=== PATIENT | male | born 1955 | race Caucasian/White ===

== ENCOUNTER 2017-07-15 16:35 | Emergency (ER) | payer SELFPAY ==
[2017-07-15 16:41] VITALS: BP 139/77
--- NOTE | 2017-07-15 17:14 | ER Document Report ---
ED Medical Screen (RME) - General Chief Complaint: Sore Throat Stated Complaint: THROAT PAIN,COUGH Time Seen by Provider: 07/15/17 17:12 Notes: Patient was diagnosed last year with "throat cancer". He he was then started on radiation therapy. No surgery or chemo was given. Patient states that he did not complete radiation treatments because his insurance was canceled. He states he has not been seen by any doctor since September 2016. He was being followed by Dr. Pizarro. Patient states he comes in now because he feels like his voice is becoming more hoarse, his throat is more painful, and he is coughing more to the point where he cannot breathe. TRAVEL OUTSIDE OF THE [place] IN LAST 30 DAYS: No - Related Data Allergies/Adverse Reactions: No Known Allergies Allergy (Unverified 07/15/17 16:41) Past Medical History - Social History Chew tobacco use (# tins/day): No Frequency of alcohol use: None Drug Abuse: None Renal/ Medical History: Denies: Hx Peritoneal Dialysis Physical Exam - Vital signs Vitals: Temp Pulse Resp BP Pulse Ox 98.5 F 99 18 139/77 H 96 07/15/17 16:39 07/15/17 16:39 07/15/17 16:39 07/15/17 16:39 07/15/17 16:39 Course - Vital Signs Vital signs: Temp Pulse Resp BP Pulse Ox 98.5 F 99 18 139/77 H 96 07/15/17 16:39 07/15/17 16:39 07/15/17 16:39 07/15/17 16:39 07/15/17 16:39
--- NOTE | 2017-07-15 17:35 | RADIOLOGY REPORT (SQ) ---
EXAM DESCRIPTION: CHEST PA/LAT COMPLETED DATE/TIME: 07/15/2017 5:23 pm REASON FOR STUDY: cough COMPARISON: None. EXAM PARAMETERS: NUMBER OF VIEWS: two views TECHNIQUE: Digital Frontal and Lateral radiographic views of the chest acquired. RADIATION DOSE: NA LIMITATIONS: none FINDINGS: LUNGS AND PLEURA: No opacities, masses or pneumothorax. No pleural effusion. MEDIASTINUM AND HILAR STRUCTURES: No masses or contour abnormalities. HEART AND VASCULAR STRUCTURES: Heart normal size. No evidence for failure. BONES: No acute findings. HARDWARE: None in the chest. OTHER: No other significant finding. IMPRESSION: NO SIGNIFICANT RADIOGRAPHIC FINDING IN THE CHEST. TECHNICAL DOCUMENTATION: JOB ID: [id number] [employer]- All Rights Reserved
[2017-07-15 18:34] LABS: HEMATOCRIT 50.6 % (37.9-51.0); HEMOGLOBIN 17.8 g/dL (13.5-17.0); HGB HCT DIFFERENCE 2.8; MEAN CORPUSCULAR HEMOGLOBIN 32.4 pg (27.0-33.4); MEAN CORPUSCULAR HGB CONC 35.3 g/dL (32.0-36.0); MEAN CORPUSCULAR VOLUME 92 fl (80-97); RED BLOOD COUNT 5.51 10^6/uL (4.35-5.55); RED CELL DISTRIBUTION WIDTH 13.5 % (11.5-14.0); WHITE BLOOD COUNT 7.7 10^3/uL (4.0-10.5)
--- NOTE | 2017-07-15 18:38 | ER Document Report ---
ED ENT - General Chief Complaint: Sore Throat Stated Complaint: THROAT PAIN,COUGH Time Seen by Provider: 07/15/17 17:12 Notes: The patient is a 62-year-old male, past medical history throat cancer (was receiving radiation [address] Sosa, but no further treatment due to loss of insurance), presents with several weeks of increasing painful swallowing, dry cough and hoarse voice. He does not have insurance, but spoke to a financial counselor today in the ER ro help obtain insurance. He denies stridor, shortness of breath, fevers,nausea, vomiting, chest pain or neck stiffness. TRAVEL OUTSIDE OF THE [place] IN LAST 30 DAYS: No - Related Data Allergies/Adverse Reactions: No Known Allergies Allergy (Unverified 07/15/17 16:41) Past Medical History - General Information source: Patient - Social History Smoking Status: Former Smoker Chew tobacco use (# tins/day): No Frequency of alcohol use: None Drug Abuse: None Family History: Reviewed & Not Pertinent Patient has suicidal ideation: No Patient has homicidal ideation: No Renal/ Medical History: Denies: Hx Peritoneal Dialysis Review of Systems - Review of Systems Notes: REVIEW OF SYSTEMS: CONSTITUTIONAL: -fevers, -chills EENT: -eye pain, -difficulty swallowing, -nasal congestion, +sore throat CARDIOVASCULAR:-chest pain, -syncope. RESPIRATORY: +cough, -SOB GASTROINTESTINAL: -abdominal pain, - nausea, -vomiting, -diarrhea GENITOURINARY: -dysuria, -hematuria MUSCULOSKELETAL: -back pain, -neck pain SKIN: -rash or skin lesions. HEMATOLOGIC: -easy bruising or bleeding. LYMPHATIC: -swollen, enlarged glands. NEUROLOGICAL: -altered mental status or loss of consciousness, -headache, - neurologic symptoms PSYCHIATRIC: -anxiety, -depression. ALL OTHER SYSTEMS REVIEWED AND NEGATIVE. Physical Exam - Vital signs Vitals: Temp Pulse Resp BP Pulse Ox 98.5 F 99 18 139/77 H 96 07/15/17 16:39 07/15/17 16:39 07/15/17 16:39 07/15/17 16:39 07/15/17 16:39 - Notes Notes: PHYSICAL EXAMINATION: GENERAL: Well-appearing, well-nourished and in no acute distress. HEAD: Atraumatic, normocephalic. EYES: Pupils equal round and reactive to light, extraocular movements intact, sclera anicteric, conjunctiva are normal. ENT: nares patent, oropharynx clear without exudates. Moist mucous membranes. Hoarse voice. NECK: Normal range of motion, supple without lymphadenopathy LUNGS: Breath sounds clear to auscultation bilaterally and equal. No wheezes rales or rhonchi. HEART: Regular rate and rhythm without murmurs ABDOMEN: Soft, nontender, normoactive bowel sounds. No guarding, no rebound. No masses appreciated. EXTREMITIES: Normal range of motion, no pitting or edema. No cyanosis. NEUROLOGICAL: Cranial nerves grossly intact. Normal speech, normal gait. Normal sensory and motor exams. PSYCH: Normal mood, normal affect. SKIN: Warm, Dry, normal turgor, no rashes or lesions noted. Course - Re-evaluation Re-evalutation: 07/15/17 19:[address] Hussein (ENT construction contractor). He recommends having patient call his radiation oncologist, Dr. Sosa, tomorrow, since he is already a prior patient of his. He will consult if Dr. Sosa request his help. Patient is in no respiratory distress and he is protecting his airway. He has no stridor and his lungs are clear. Blood work and chest x-ray ordered from triage are unremarkable. Will provide pain control for patient and have him follow-up with the radiation oncologist tomorrow. Given strict return precautions and he understands. - Vital Signs Vital signs: Temp Pulse Resp BP Pulse Ox 98.5 F 99 18 139/77 H 96 07/15/17 16:39 07/15/17 16:39 07/15/17 16:39 07/15/17 16:39 07/15/17 16:39 - Laboratory Result Diagrams: 07/15/17 18:10 07/15/17 18:10 Laboratory results interpreted by me: 07/15/17 18:10 Hgb 17.8 H Lymphocytes % (Manual) 9 L - Diagnostic Test Radiology reviewed: Image reviewed, Reports reviewed Radiology results interpreted by me: CXR: NAD Discharge - Discharge Clinical Impression: Throat pain Condition: Stable Disposition: HOME, SELF-CARE Additional Instructions: Call your radiation oncologist tomorrow for a follow-up appointment. The financial counselor is helping you to obtain insurance to help with treatment. Return to the ER if you have worsening shortness of breath. Prescriptions: Hydrocodone/Acetaminophen [Harriet 5-325 mg Tablet] 1 tab PO Q6H PRN #20 tablet PRN Reason: Forms: Elevated Blood Pressure Referrals: TRISH SOSA DO [ACTIVE STAFF] - Follow up as needed ECHO HUSSEIN DO [ASSOCIATE] - Follow up as needed
[2017-07-15] MEDS ORDERED: HYDROCODONE/ACETAMINOPHEN 5-325 MG TABLET PO ONE (18:58)
[2017-07-15 19:00] LABS: BASOPHILS % (MANUAL) 0 % (0-2); EOSINOPHILS % (MANUAL) 3 % (0-6); LYMPHOCYTES % (MANUAL) 9 % (13-45); TOTAL CELLS COUNTED 100
[2017-07-15 19:01] LABS: TOXIC GRANULATION SLIGHT
== END 2017-07-15 19:30 | disposition home or self-care (01) ==
LOC: ER 16:35
DX: R07.0 Pain in throat (principal); J02.9 Acute pharyngitis, unspecified; R05 Cough; Z87.891 Personal history of nicotine dependence
CPT/HCPCS: 36415; 71020; 85025; 99283

== ENCOUNTER → 2017-08-14 | Outpatient (CLI) | payer MEDICAID, MEDICARE ==
--- NOTE | 2017-08-14 16:15 | RADIOLOGY REPORT (SQ) ---
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 Reconstructed coronal and sagittal MPR images reviewed. All images stored on PACS. All CT scanners at this facility use dose modulation, iterative reconstruction, and/or weight based d osing when appropriate to reduce radiation dose to as low as reasonably achievable (ALARA). [facility]: Dose Right [facility]: CareDose [facility]: Dose Right [facility]: Teradose 4D [facility]: [employer] CONTRAST TYPE AND DOSE: 80.3 mL Isovue 370- low osmolar. RENAL FUNCTION: Creatinine 1.0 RADIATION DOSE: 13.7 mGy . LIMITATIONS: None. FINDINGS: There is narrowing of the glottic airway by circumferential glottic and supraglottic tumor , best shown on axial images 57-68, and sagittal images 63-69. Lumpy tumor is seen in the anterior a spect of the supraglottic larynx, likely involving the anterior commissure. There is relative sparin g of the epiglottis and aryepiglottic folds. SKULL BASE: Inferior brain parenchyma, [place] vessels unremarkable. MAJOR SALIVARY GLANDS: No solid or cystic masses. No inflammatory changes. LYMPHADENOPATHY: A cluster of subcentimeter lymph nodes is seen in the rightward thoracic inlet, the largest of these is 9 x 6 mm on axial image 86. The group of small lymph nodes is best shown on axia l images 80-86 and coronal images 67-72. No other cervical or mediastinal adenopathy in the field of view MUCOSAL MASSES OR ASYMMETRY: No nasopharynx, oropharynx, or hypopharynx mucosal masses or asymmetry. LARYNX/CORDS: As above VASCULAR STRUCTURES: The major vessels are patent. LUNG APICES: Clear. BONES: Intact. THYROID: Normal size. No masses. PARANASAL SINUSES: Clear. OTHER: No other significant finding. IMPRESSION: Glottic and supraglottic laryngeal tumor. Several small lymph nodes in the rightward as pect of the thoracic inlet TECHNICAL DOCUMENTATION: JOB ID: [id number] Quality ID # [id number]: Final reports with documentation of one or more dose reduction techniques (e.g., Au tomated exposure control, adjustment of the mA and/or kV according to patient size, use of iterative reconstruction technique) 2010 [employer]- All Rights Reserved
--- NOTE | 2017-08-14 16:43 | RADIOLOGY REPORT (SQ) ---
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 TECHNIQUE: CT scan of the chest performed using helical scanning technique with dynamic intravenous contrast injection. Images reviewed with lung, soft tissue and bone windows. Reconstructed coronal and sagittal MPR images reviewed. All images stored on PACS. All CT scanners at this facility use dose modulation, iterative reconstruction, and/or weight based d osing when appropriate to reduce radiation dose to as low as reasonably achievable (ALARA). [facility]: Dose Right [facility]: CareDose [facility]: Dose Right [facility]: Teradose 4D [facility]: [employer] CONTRAST TYPE AND DOSE: contrast/concentration: Isovue 370.00 mg/ml; Total Contrast Delivered: 80.0 ml; Total Saline Delivered: 55.0 ml RENAL FUNCTION: Creatinine 1.0 RADIATION DOSE: . LIMITATIONS: None. FINDINGS: LUNGS AND PLEURA: There is nonspecific ground-glass opacification in the upper aspect of t he right lower lobe posteriorly. No pulmonary masses are seen. HILAR AND MEDIASTINAL STRUCTURES: There appears to be a 10 mm anterior mediastinal node on image 44 s eries 3. HEART AND VASCULAR STRUCTURES: No aneurysm or dissection. No central pulmonary emboli. No pericardi al effusion. HARDWARE: None in the chest. UPPER ABDOMEN: The spleen is not included in its entirety, but appears to enlarged. THYROID AND OTHER SOFT TISSUES: No masses. No adenopathy. BONES: There are some old rib fractures on the right. No osseous metastases seen. OTHER: No other significant finding. IMPRESSION: 1. Limited ground-glass opacification in the right lung as described. Nonspecific find ing. May indicate chronic interstitial change, limited edema, atypical inflammation infection. 2. There is a small anterior mediastinal lymph node at about the level of the xiphoid. 3. Apparent splenomegaly. TECHNICAL DOCUMENTATION: JOB ID: [id number] Quality ID # [id number]: Final reports with documentation of one or more dose reduction techniques (e.g., Au tomated exposure control, adjustment of the mA and/or kV according to patient size, use of iterative reconstruction technique) 2010 [employer]- All Rights Reserved
== END ==
LOC: RAD 14:44
PROVIDERS: ATTEND Radiology Radiation Oncology
DX: C32.0 Malignant neoplasm of glottis (principal); R16.1 Splenomegaly, not elsewhere classified
CPT/HCPCS: 70491; 71260; 82565